=== PATIENT | male | born 1955 | race Caucasian/White ===

== ENCOUNTER 2021-06-16 18:59 | Emergency (ER) | payer OTHER, SELFPAY ==
--- NOTE | ~2021-06-16 | CT_ITS ---
EXAMINATION: CT abdomen pelvis w con EXAM DATE: 06/16/2021 22:48 INDICATION: Abdominal pain . Vomiting. Syncope. TECHNIQUE: Spiral CT of the abdomen and pelvis was performed following intravenous injection of 100 m L Omnipaque 350. Axial, coronal and sagittal images of the abdomen and pelvis were reviewed. The do se-length product (DLP) for this examination was 373.82 mGy-cm. The exposure was tailored according to patient size (auto mA exposure control), and iterative reconstruction (ASIR) was used as additiona l dose reduction technique. There is no prior study for comparison. FINDINGS: The liver, spleen, adrenal glands and pancreas are unremarkable. Gallbladder is unremarkab le. No biliary obstruction. Portal and splenic veins are patent. Kidneys enhance symmetrically. T here is no hydronephrosis. There is moderate prostatomegaly, prostate measuring 5 cm transverse dim ension, and bulging into the bladder. The bladder is unremarkable. There is no retroperitoneal or p elvic lymphadenopathy. Bilateral common iliac artery ectasia, left iliac artery measuring 2 cm and the right measuring 1.8 cm. The appendix is normal. The stomach and small bowel are unremarkable. There is,, small bowel and co lonic fluid, correlate for diarrhea/gastroenteritis. No free intraperitoneal gas. The heart is no rmal in size. The ascending measures 5.0 cm There are no pericardial or pleural effusions. The lung bases are unremarkable. There are no osteoblastic or osteolytic lesions identified. IMPRESSION: 1. Fluid throughout bowel, consider gastroenteritis. 2. Mildly aneurysmal ascending aorta at 5.0 cm. 3. Bilateral common iliac ectasia. 4. Prostatomegaly. Reviewed, dictated and finalized at location G.
[2021-06-16 19:03] VITALS: BP 137/69; PULSE 93; RESP 18; TEMP 36.4; O2SAT 99
--- NOTE | 2021-06-16 19:08 | ECG_ITS ---
Measurements Intervals [place] Rate: 92 P: 67 OK: 165 QRS: -21 QRSD: 85 T: 58 QT: 331 QTc: 410 Interpretive Statements SINUS RHYTHM LEFT ATRIAL ENLARGEMENT [-0.15mV P WAVE IN V1/V2] BORDERLINE LEFT AXIS DEVIATION [QRS AXIS < -20] NONSPECIFIC ST & T-WAVE ABNORMALITY ABNORMAL ECG NO PREVIOUS ECG AVAILABLE FOR COMPARISON Electronically Signed On 06-17-2021 11:15:08 CDT by Harlan Martinez M.D.
[2021-06-16 20:10] LABS: Basophils Absolute Auto 0.1 K/mm3 (0.0-0.1); Basophils Percent Auto 0.3 % (0.2-1.2); Eosinophils Absolute Auto 0.1 K/mm3 (0-0.3); Eosinophils Percent Auto 0.6 % (0-4.4); Hematocrit 51.3 % (42.0-52.0); Hemoglobin 17.3 g/dL (14.0-18.0); Immature Granulocyte Absolute 0.07 K/mm3 (0.00-0.031); Immature Granulocyte Percent A 0.4 % (0-0.5); Lymphocytes Absolute Auto 0.51 K/mm3 (0.9-3.2); Lymphocytes Percent Auto 2.7 % (18.3-44.2); Mean Corpuscular HGB Conc 33.7 g/dl (32-36); Mean Corpuscular Hemoglobin 31.3 pg (26-34); Mean Corpuscular Volume 92.9 fl (80-100); Monocytes Absolute Auto 1.4 K/mm3 (0.1-0.6); Monocytes Percent Auto 7.3 % (2.6-8.5); Neutrophils Absolute Auto 16.5 K/mm3 (1.3-6.7); Neutrophils Percent Auto 88.7 % (45.5-73.1); Platelet Count Result 238 k/mm3 (150-375); Red Blood Count 5.52 M/mm3 (4.6-6.20); Red Cell Distribution Width 12.5 % (11.5-14.5); White Blood Count 18.6 K/mm3 (4.5-10.0)
[2021-06-16] MEDS: ONDANSETRON INJ 4 MG/2 ML VIAL 8 MG IV PUSH (20:11)
[2021-06-16] MEDS: SODIUM CHLORIDE 0.9% IV 1,000 ML 999 ML IV CONT ×2 (20:11→20:46)
[2021-06-16] MEDS: LORazepam INJ (*CRX) 2 MG/ML VIAL 1 MG IV PUSH (20:12)
[2021-06-16 20:20] LABS: Alanine Aminotransferase 16 U/L (4-50); Albumin Level 4.8 g/dL (3.5-5.1); Alkaline Phosphatase 66 U/L (38-126); Anion Gap 12 mmol/L (8-16); Aspartate Amino Transferase 30 U/L (17-59); Bilirubin,Total 3.4 mg/dL (0.2-1.3); Blood Urea Nitrogen 20 mg/dL (9-20); Calcium 9.2 mg/dL (8.4-10.2); Carbon Dioxide 26 mmol/L (22-30); Chloride 103 mmol/L (98-107); Estimated CRCL calculation 63 ml/min; Estimated Glomerular Filt Rate > 60; Glucose 155 mg/dL (65-110); Potassium 3.8 mmol/L (3.4-5.0); Sodium 141 mmol/L (137-145)
[2021-06-16 20:41] VITALS: BP 147/72; PULSE 91; RESP 16; O2SAT 96
--- NOTE | 2021-06-16 22:13 | ED.DIZZY ---
HPI - Dizziness General Chief Complaint: Syncope Stated Complaint: syncope, refused ems on scene Time Seen by Provider: 06/16/21 19:51 Source: patient, EMS and RN notes reviewed Mode of arrival: EMS Limitations: no limitations History of Present Illness HPI Narrative: Patient is 65 years old white male went to the bathroom to have a bowel movement suddenly have massive diarrhea like an open hose, with some straining, developed lightheadedness, went to the bathroom, patient was slumped over, sitting on the toilet unresponsive, on arrival to the ED patient had violent vomiting x1 and at least 3 large watery stool over 1 hour. Currently patient feeling okay. Patient reports grandkids had similar symptoms over the last few days. Patient denies any headache, focal deficit, chest pain, shortness of breath, back pain, abdominal pain. Just feeling no energy. at the bedside, denying any symptoms. Related Data Allergies Allergy/AdvReac Type Severity Reaction Status Date / Time No Known Allergies Allergy Verified 06/16/21 19:45 Review of Systems Review of Systems: CONSTITUTIONAL: Denies fever, chills, or sweats. EYES: Denies visual changes, redness, or discharge. ENT: Denies rhinorrhea, congestion, sore throat, or otalgia. CARDIOVASCULAR: Denies chest pain, palpitations, or edema. RESPIRATORY: Denies cough or dyspnea. GASTROINTESTINAL: Denies abdominal pain, nausea, vomiting, or diarrhea. GENITOURINARY: Denies dysuria or hematuria. SKIN: Denies rash or itching. MUSCULOSKELETAL: Denies back pain, joint pain, or myalgia. NEUROLOGIC: Denies headache, numbness, or weakness. PSYCHIATRIC: Denies anxiety or depression. [facility] Past Medical History Medical History HLD (hyperlipidemia) Surgical History Surgical History History of surgical removal of ganglion cyst left wrist Social History Social History Smoking status: Never smoker Second hand tobacco smoke exposure: No Alcohol intake: current Drinks per week: 1 Substance use: never Substance use type: does not use Gender identity (if verbalized by the patient): Male Sexual Orientation (if Verbalized by the Patient): Straight or Heterosexual Exam Narrative: General appearance: Well-developed, well-nourished, patient have violent vomiting and dry heave on arrival to the emergency room Skin: Normal color Head: Normocephalic, nontraumatic Eyes: Clear conjunctiva ENT: Oropharynx normal, ears normal, nose normal Neck: Supple, nontender Chest and respiratory: Airway patent, no respiratory distress, no accessory muscle use Heart: Regular rate/rhythm Abdomen: Soft, nontender, no organomegaly, quiet bowel sounds Vascular: Normal peripheral pulses, normal capillary refill. Musculoskeletal: Normal range of motion, nontender back Neurologic: Alert and oriented ?3, [employer] is normal as tested, no gross motor deficit Course Course Emergency Course: Stable, improving. Patient unresponsiveness while sitting on the toilet high likely secondary to vasovagal and sudden loss of large amount of fluid through the diarrhea. Work-up showed leukocytosis which high likely reactive, Patient received 2 L of fluid, 8 mg of Zofran and 1 mg of Ativan to control his violent vomiting and dry heaves. Currently patient feeling much better and ready to go home. Vital Signs Vital signs: Vital Signs Temperature 36.4 C 06/16/21 19:03 Pulse Rate 93 06/16/21 19:03 Respiratory Rate 18 06/16/21 19:03 Blood Pressure 137/69 06/16/21 19:03 Pulse Oximetry 99
[2021-06-16 23:09] LABS: Add Urine Microscopic? YES; Appearance Urine Clear (Clear); Bilirubin Urine Negative (Negative); Blood Urine 1+ (Negative); Color Urine Yellow (Yellow); Glucose Urine UA Negative (Negative); Ketones Urine 1+ mg/dL (Negative); Leukocyte Esterase Ur Negative LEU/UL (Negative); Mucus Urine Rare /lpf; Nitrate Urine Negative (Negative); Protein Urine Negative (Negative); RBC Urine 0-2 /hpf (0-2); Urobilinogen Urine Negative mg/dL (<2.0); WBC Urine 0-3 /hpf
[2021-06-16 23:10] LABS: Specific Grav Ur 1.036 (1.001-1.035)
[2021-06-16 23:25] VITALS: BP 133/71; PULSE 97; RESP 18; O2SAT 94
== END 2021-06-16 23:26 | disposition home or self-care (01) ==
PROVIDERS: Emergency Provider Emergency Medicine; PCP Family Medicine
DX: K52.9 Noninfective gastroenteritis and colitis, unspecified (principal); I71.2 Thoracic aortic aneurysm, without rupture; E78.5 Hyperlipidemia, unspecified; N40.0 Benign prostatic hyperplasia without lower urinary tract symptoms; R94.31 Abnormal electrocardiogram [ECG] [EKG]
CPT/HCPCS: 36415; 74177; 80053; 81001; 85025; 93005; 96361; 96374; 96375; 99284; J2060; J2405; J7030; Q9967

== ENCOUNTER 2021-09-15 00:56 | Day surgery (SDC) | payer OTHER, SELFPAY ==
[2021-09-15] VITALS (8 sets, daily range): BP systolic 132–151; BP diastolic 83–92; PULSE 68–80; RESP 10–16; TEMP 36.1; O2SAT 97–100; BMI 21.4
--- NOTE | 2021-09-15 | ECHO_ITS ---
Patient Info Name: Jarret Byrd Age: 65 years : 1955 Gender: Male Ht: 74 in Wt: 170 lbs BSA: 2.00 m2 HR: 76 bpm BP: 121 / 91 mmHg Heart Rhythm: Sinus Rhythm Technical Quality: Good Exam Date: 09/15/2021 8:33 AM Exam Location: [facility] Patient Status: Outpatient Admit Date: 09/15/2021 Staff Ordering Physician: Vinny Wing MD Transaction Advisory Services Manager: Nay Portillo RDCS Attending Provider: Vinny Wing MD Referring Physician: Maciej GODINEZ; Exam Type: CA echo transesophageal Study Info Indications - Mitral regurgitation Complete two-dimensional, color flow and Doppler transesophageal study is performed. Summary 1. Left ventricular chamber dimension is mildly enlarged. 2. Global systolic function is preserved ejection fraction 55-60%. 3. Left atrial chamber dimension is moderately enlarged. 4. The mitral valve has thickened leaflets and posterior prolapse. 5. There is moderate to severe mitral valve regurgitation. 6. There appears to be posterior leaflet prolapse but also bileaflet prolapse with moderate to severe. Left Ventricle Left ventricular chamber dimension is mildly enlarged. Global systolic function is preserved ejection fraction 55-60%. Right Ventricle Right ventricular chamber dimension is normal. Left Atria Left atrial chamber dimension is moderately enlarged. Right Atria Right atrial chamber dimension is normal. Aortic Valve The aortic valve is normal. Pulmonic Valve The pulmonic valve is normal. Mitral Valve The mitral valve has thickened leaflets and posterior prolapse. There is moderate to severe mitral valve regurgitation. There appears to be posterior leaflet prolapse but also bileaflet prolapse with moderate to severe. Tricuspid Valve The tricuspid valve leaflets are normal. Pericardium/Pleural The pericardium appears normal. Inferior Vena Cava Not well visualized inferior vena cava with Empty collapse upon inspiration consistent with Empty right atrial pressure, Empty. Aorta The aortic root size at the sinus of Valsalva is normal. Report Signatures
--- NOTE | 2021-09-15 08:24 | WPDMODSED ---
Moderate Sedation Note-Pt Data Patient Data Diagnosis: Posterior mitral valve prolapse with significant MR Present Complaint: No complaints Procedure to be performed/Plan: Transesophageal echocardiogram Allergies Allergy/AdvReac Type Severity Reaction Status Date / Time No Known Allergies Allergy Verified 09/15/21 07:35 Home Medications Medication Instructions Recorded Confirmed Type No Home Medications 06/30/21 09/12/21 History Sedation/Anesthesia: No previous sedation/anesthesia problems (including family history). PMFSH Past Medical History Medical History HLD (hyperlipidemia) Surgical History Surgical History History of surgical removal of ganglion cyst left wrist Social History Social History Smoking status: Never smoker Second hand tobacco smoke exposure: No Alcohol intake: current Drinks per week: 1 Substance use: never Substance use type: does not use Living arrangements: with family Gender identity (if verbalized by the patient): Male Sexual Orientation (if Verbalized by the Patient): Straight or Heterosexual Spiritual care concerns: No Mod Sed Physical Exam Physical Exam Pre Procedural Exam: Normal: Appearance, Neck, Throat, Airway, Lungs, Heart Size, Heart Rhythm, Neuro Exam and Extremities and Variation: Heart Rate (Mildly tachycardic) Hours since solid foods: 12 Hours since liquid intake: 12 Mallampati Classification: class II Internal Medicine - PN: Obj Da Vital Signs Vital Signs: Vital Signs - 24 hr 09/15/21 07:43 Temperature 36.1 C L Pulse Rate 79 Respiratory Rate 14 Blood Pressure 135/91 H Pulse Oximetry 97 Oxygen Delivery Room Air ASA Classification/Sedation ASA Classification/Sedation ASA Class: II Emergent: No Risks: Risks, benefits and alternatives explained and patient/family accepted plan for sedation. Patient re-evaluated immediately prior to sedation.
--- NOTE | 2021-09-15 08:51 | P.PCNCC_ITS ---
Cardiac Cath Procedure Note Date of procedure:: 09/15/21 Performing physician:: Vinny Wing MD Indication:: Mitral valve regurgitation Brief clinical history:: This is a 65-year-old gentleman who is currently asymptomatic but was found to have mitral valve prolapse with significant MR and is being evaluated as a potential candidate for mitral valve repair Procedure Procedure performed:: Transesophageal echocardiogram Sedation/Medication given:: Fentanyl 100 mg Versed 4 mg Case start time 8:33 a.m. Case end time 8:46 a.m. Sedation provided by Ralph Ramirez RN, trained observer Estimated blood loss:: No blood loss Procedure note:: Patient was brought to the cardiac catheterization lab holding area in the postabsorptive state IV access was placed in the left upper extremity. He had or pharyngeal benzocaine sprayed and a bite block placed in position. He was then sedated using aliquots of Versed and fentanyl. When adequate sedation was achieved transesophageal echocardiogram was performed easily and without complication. Multiple views were obtained and careful a color Doppler interrogation of the mitral valve was obtained. The descending thoracic aorta and aortic root as well as the aortic arch were examined. The probe was then withdrawn the patient will be recovered from sedation procedure was well tolerated and uncomplicated. Findings:: The left atrium is pizl-zl-zjsvyaooyf enlarged the mitral valve leaflets are thickened particularly the posterior leaflet. Both leaflets appear to prolapse a. The most significant prolapse appears to be in the P2 segment of the posterior leaflet where significant failure to coapted with the anterior leaflet is noted. There is an eccentric jet of mitral regurgitation identified that is moderate to severe by color Doppler exam. The patient does not have any flail chordal elements identified. The left ventricle is slightly dilated there is normal systolic contractility in all segments the global ejection fraction appears to be about 60%. The aortic valve is a normal trileaflet structure which is thin and pliable. The ascending aorta arch and descending thoracic aorta appear to be unremarkable. The tricuspid and pulmonic valves look normal. There is no evidence of pericardial fluid. The interatrial septum is intact. The tricuspid and pulmonic valves look normal. Conclusion:: 1. Bileaflet mitral valve prolapse more significant in the posterior leaflet with at least moderate to severe MR noted on color Doppler imaging. 2. Mild left ventricular systolic dysfunction as judged by mildly increased LV diameter Vinny Wing MD [facility]
--- NOTE | 2021-09-15 09:10 | SUR.PHASEII ---
TAKING WATER PO WITHOUT DIFFICULTY. SWALLOWING WELL.
== END 2021-09-15 10:30 | disposition home or self-care (01) ==
PROVIDERS: PCP Family Medicine; Visit Provider Specialist
PROC: (CPT 93312; principal; 2021-09-15 08:30)
DX: I34.0 Nonrheumatic mitral (valve) insufficiency (principal); I34.1 Nonrheumatic mitral (valve) prolapse
CPT/HCPCS: 93312; 93320; 93325; J2250; J3010; J7040

== ENCOUNTER 2021-10-06 00:53 | Day surgery (SDC) | payer OTHER, SELFPAY ==
[2021-10-06] VITALS (10 sets, daily range): BP systolic 104–129; BP diastolic 67–92; PULSE 61–76; RESP 12–18; TEMP 36.2; O2SAT 93–98; BMI 21.0
[2021-10-06 07:26] LABS: Basophils Percent Auto 0.5 % (0.2-1.2); Eosinophils Absolute Auto 0.2 K/mm3 (0-0.3); Hematocrit 47.6 % (42.0-52.0); Hemoglobin 16.1 g/dL (14.0-18.0); Immature Granulocyte Absolute 0.02 K/mm3 (0.00-0.031); Immature Granulocyte Percent A 0.3 % (0-0.5); Lymphocytes Absolute Auto 2.29 K/mm3 (0.9-3.2); Lymphocytes Percent Auto 30.2 % (18.3-44.2); Mean Corpuscular HGB Conc 33.8 g/dl (32-36); Mean Corpuscular Hemoglobin 30.3 pg (26-34); Mean Corpuscular Volume 89.6 fl (80-100); Monocytes Absolute Auto 0.7 K/mm3 (0.1-0.6); Monocytes Percent Auto 9.4 % (2.6-8.5); Neutrophils Absolute Auto 4.3 K/mm3 (1.3-6.7); Neutrophils Percent Auto 56.6 % (45.5-73.1); Platelet Count Result 199 k/mm3 (150-375); Red Blood Count 5.31 M/mm3 (4.6-6.20); Red Cell Distribution Width 12.6 % (11.5-14.5); White Blood Count 7.6 K/mm3 (4.5-10.0)
[2021-10-06 07:37] LABS: Anion Gap 6 mmol/L (8-16); Blood Urea Nitrogen 16 mg/dL (9-20); Calcium 8.8 mg/dL (8.4-10.2); Carbon Dioxide 27 mmol/L (22-30); Chloride 106 mmol/L (98-107); Estimated CRCL calculation 76 ml/min; Estimated Glomerular Filt Rate > 60; Glucose 96 mg/dL (65-110); Potassium 4.6 mmol/L (3.4-5.0); Sodium 139 mmol/L (137-145)
[2021-10-06] MEDS: SODIUM CHLORIDE 0.9% IV 500 ML 100 ML IV CONT (07:38)
--- NOTE | 2021-10-06 08:32 | WPDMODSED ---
Moderate Sedation Note-Pt Data Patient Data Diagnosis: Mitral valve prolapse with mitral regurgitation Present Complaint: no complaints this morning Procedure to be performed/Plan: right and left heart catheterization Allergies Allergy/AdvReac Type Severity Reaction Status Date / Time No Known Allergies Allergy Verified 09/15/21 07:35 Home Medications Medication Instructions Recorded Confirmed Type No Home Medications 06/30/21 10/03/21 History Current Medications: Active Medications Sodium Chloride (Normal Saline Iv) 500 mls @ 100 mls/hr IV CONT .[facility] Last Admin: 10/06/21 07:38 Dose: 100 mls/hr Sedation/Anesthesia: No previous sedation/anesthesia problems (including family history). PMFSH Past Medical History Medical History HLD (hyperlipidemia) Surgical History Surgical History History of surgical removal of ganglion cyst left wrist Social History Social History Smoking status: Never smoker Second hand tobacco smoke exposure: No Alcohol intake: current Drinks per week: 1 Substance use: never Substance use type: does not use Living arrangements: with family Gender identity (if verbalized by the patient): Male Sexual Orientation (if Verbalized by the Patient): Straight or Heterosexual Spiritual care concerns: No Mod Sed Physical Exam Physical Exam Pre Procedural Exam: Normal: Appearance, Neck, Throat, Airway, Lungs, Heart Size, Heart Rate, Heart Rhythm, Neuro Exam and Extremities Hours since solid foods: 12 Hours since liquid intake: 12 Mallampati Classification: class II Internal Medicine - PN: Obj Da Vital Signs Vital Signs: Vital Signs - 24 hr 10/06/21 07:18 Temperature 36.2 C L Pulse Rate 68 Respiratory Rate 16 Blood Pressure 129/82 Pulse Oximetry 98 Oxygen Delivery Room Air Meds/Results Medications: Active Medications Generic Name Dose Route Start Last Admin Trade Name Freq PRN Reason Stop Dose Admin Sodium Chloride 500 mls @ 100 mls/hr 10/06/21 07:20 10/06/21 07:38 Normal Saline Iv IV CONT 100 mls/hr .Q5H DWAYNE Administration Labs CBC & Chem 7: 10/06/21 07:22 10/06/21 07:22 Labs: Laboratory Results - last 24 hr 10/06/21 10/06/21 07:22 07:22 WBC 7.6 RBC 5.31 Hgb 16.1 Hct 47.6 MCV 89.6 MCH 30.3 MCHC 33.8 RDW 12.6 Plt Count 199 MPV 10.0 Immature Gran % (Auto) 0.3 Neut % (Auto) 56.6 Lymph % (Auto) 30.2 [place] % (Auto) 9.4 H Eos % (Auto) 3.0 Baso % (Auto) 0.5 Lymph # (Auto) 2.29 [place] # (Auto) 0.7 H Eos # (Auto) 0.2 Baso # (Auto) 0.0 Abs Immat Gran (auto) 0.02 Absolute Neuts (auto) 4.3 Absolute Nucleated RBC 0.0 Nucleated RBC % 0.0 Sodium 139 Potassium 4.6 Chloride 106 Carbon Dioxide 27 Anion Gap 6 L BUN 16 Creatinine 0.90 Estim Creat Clear Calc 76 Estimated GFR > 60 Glucose 96 Calcium 8.8 ASA Classification/Sedation ASA Classification/Sedation ASA Class: III Emergent: No Risks: Risks, benefits and alternatives explained and patient/family accepted plan for sedation. Patient re-evaluated immediately prior to sedation.
--- NOTE | 2021-10-06 09:29 | P.PCNCC_ITS ---
Cardiac Cath Procedure Note Date of procedure:: 10/06/21 Performing physician:: Vinny Wing MD Indication:: mitral regurgitation Brief clinical history:: this is a 65-year-old patient recently referred because of a cardiac murmur. He has been found to have evidence of posterior leaflet mitral valve prolapse and significant MR. Right left heart catheterization has been scheduled for today in anticipation of a surgical consultation. Procedure Procedure performed:: Right and left heart catheterization Sedation/Medication given:: fentanyl 50 mg Versed 2 mg case start time 8:45 a.m. case end time 9:27 a.m. sedation provided by Ralph Costa RN, trained observer Access site:: right femoral artery, right femoral vein Estimated blood loss:: 25 cc Procedure note:: patient was brought to the cardiac catheterization lab in the postabsorptive state where the right femoral triangle was prepared and draped in the usual fashion. 1% lidocaine was infiltrated locally. Using the modified Seldinger technique the right femoral vein was punctured and a 7 [place] sheath was placed and then the right femoral artery was punctured and 5 Kazakh sheath was placed. After this right heart catheterization was carried out. I used a balloon tip [place]oi catheter to measure right-sided hemodynamics, thermodilution cardiac outputs and Sample AV O2 difference. the [place] catheter was then removed. I used a 5 [place] angled pigtail catheter to measure left-sided hemodynamics and inject LV g in the are AO projection. After this the left coronary artery was injected using a standard 5 [place] JL5 catheter and the right coronary artery was injected using a 5 [place] JR4 catheter. The cineangiograms were then reviewed and the case was terminated. An angiogram was done of the femoral artery through the sheath after which a 6 [place] Angio-Seal device was deployed at the puncture site with a good hemostatic result. Procedure was tolerated well there were no apparent complications and he left the medical laboratory technologist with no evidence of a groin hematoma. Findings:: Hemodynamics: Mean right atrial pressure is 5 mmHg, right ventricle 27/3 end-diastolic 6, pulmonary artery 24/12, pulmonary capillary wedge pressure 13, left ventricle 135/0 end-diastolic 10, central aorta 130 over 74, no gradient across the aortic valve. Thermodilution cardiac output is 4.9 liters/minute giving an index of 2.5. Kathryn cardiac output 5.7 liters/minute giving an index of 2.9. Left ventricle: The LV is normal in size all segments contract adequately the global ejection fraction is 55-60%. Prolapse of the posterior mitral leaflet with moderate MR is noted. The left main coronary artery is nicely patent the left anterior descending is a moderate caliber artery extending down to around the apex. The LAD and its branches are angiographically unremarkable circumflex is a moderate caliber artery giving rise to the marginal branches and a posterior branch circumflex system is smooth and angiographically normal. Right coronary artery is large in caliber and dominant to the posterior circulation the right coronary artery is smooth and angiographically normal. Conclusion:: 1. Right coronary dominant circulation with no evidence of coronary disease 2. preserved left ventricular systolic function, 3. normal cardiac output and normal pulmonary artery pressures 4. posterior leaflet prolapse with mitral regurgitation Vinny Wing MD [facility]
--- NOTE | 2021-10-06 13:51 | SUR.PHASEII ---
D: Patient bedrest ended and patient ambulated to the bathroom. Oozing from right groin arterial site. Small amount of bleeding. A: Patient instructed to returned to bed immediately, pressure applied to right groin for 10mins. Stat seal applied and bedrest continued for an additional 2 hours. made aware. R: Bleeding to right groin controlled. Patient given instruction to keep extremity straight and that his bedrest would be another 2 hous.
== END 2021-10-06 16:16 | disposition home or self-care (01) ==
PROVIDERS: PCP Family Medicine; Visit Provider Specialist
PROC: 4A023N8 Measurement of Cardiac Sampling and Pressure, Bilateral, Percutaneous Approach (ICD-10-PCS; CPT 93453; principal; 2021-10-06 08:30)
DX: I34.0 Nonrheumatic mitral (valve) insufficiency (principal); I34.1 Nonrheumatic mitral (valve) prolapse
CPT/HCPCS: 36415; 80048; 85025; 93460; C1760; C1887; C1894; G0269; J1644; J2250; J3010; J7040

== ENCOUNTER 2022-11-12 09:27 | Emergency (ER) | payer MEDICARE, SELFPAY ==
--- NOTE | ~2022-11-12 | XR_ITS ---
EXAMINATION: [id number] DATE: 11/12/2022 09:55 INDICATION: Left mid to lower lateral rib pain. Fall. TECHNIQUE: A frontal view of the chest on 2 radiographs and 2 views on 3 radiographs of the left ribs were obtained. COMPARISON: CT abdomen and pelvis 06/16/2021 FINDINGS: There is mild atelectasis versus scarring in right mid and lower lung zones. No pleural eff usion or pneumothorax. The heart size is normal. There are changes of heart valve replacement. There is a closure device at left atrial appendage. There are fractures of left sixth and seventh ribs. IMPRESSION: 1. Fractures of left sixth and seventh ribs. Reviewed, dictated and finalized at location A.
--- NOTE | 2022-11-12 09:39 | ED.GENADULT ---
HPI - General Adult General Chief complaint: Extremity Injury, Upper Stated complaint: L RIBS/ELBOW INJURY Time Seen by Provider: 11/12/22 09:39 Source: patient Mode of arrival: ambulatory Limitations: no limitations History of Present Illness HPI narrative: 66 yo M presents with c/o pain to L ribs. pt was rubbing yesterday and tried to step over a branch and it became tangled up in his feet causing him to fall onto his L side. did not hit head, denies LOC. Was able to get up on his own. STates he finsihed his run and later cut the grass. Noticed a lot of soreness to L ribs in the evending. Usually sleeps on L side and was unable to. states not so much tender on palpation but with movement a lot of pain . Denies SOB. All systems reviewed and negative except as noted above. Related Data Home Medications Medication Instructions Recorded Confirmed No Home Medications 07/06/22 11/12/22 Allergies Allergy/AdvReac Type Severity Reaction Status Date / Time No Known Allergies Allergy Verified 11/12/22 09:37 Review of Systems Review of Systems: CONSTITUTIONAL: Denies fever, chills, or sweats. EYES: Denies visual changes, redness, or discharge. ENT: Denies rhinorrhea, congestion, sore throat, or otalgia. CARDIOVASCULAR: Denies chest pain, palpitations, or edema. RESPIRATORY: Denies cough or dyspnea. GASTROINTESTINAL: Denies abdominal pain, nausea, vomiting, or diarrhea. GENITOURINARY: Denies dysuria or hematuria. SKIN: Denies rash or itching. MUSCULOSKELETAL: Denies back pain, joint pain, or myalgia. reports pain to L ribs, lateral aspect NEUROLOGIC: Denies headache, numbness, or weakness. PSYCHIATRIC: Denies anxiety or depression. All other systems reviewed are negative, except as documented in HPI. [facility] Past Medical History Medical History HLD (hyperlipidemia) Surgical History Surgical History History of maze procedure History of mitral valve repair History of surgical removal of ganglion cyst left wrist History of thoracotomy S/P left atrial appendage ligation Social History Social History (Reviewed 07/06/22 @ 08:34 by Anum Philip Smoking status: Never smoker Second hand tobacco smoke exposure: No Alcohol intake: current Drinks per week: 1 Substance use: never Substance use type: does not use Living arrangements: with family Occupation/Education: occupation Gender identity (if verbalized by the patient): Male Sexual Orientation (if Verbalized by the Patient): Straight or Heterosexual Spiritual care concerns: No Comments At time of signature, agree with nursing past medical, surgical, social and family history. There is no relevant family history pertinent to the presenting complaint. Exam Narrative: GENERAL: This is a well-nourished, well-developed patient, in no apparent distress. HEAD: normocephalic, atraumatic. EYES: PERRL. Sclera clear/white. Vision is grossly intact. EARS: External ears normal NOSE: External nose normal NECK: Neck supple, non-tender without lymphadenopathy, masses or thyromegaly. CARDIOVASCULAR: Regular rate and rhythm without murmurs, gallops, or rubs. RESPIRATORY: Clear to auscultation. Breath sounds equal bilaterally. No wheezes, rales, or rhonchi. SKIN: warm, Dry, intact with no suspicious lesions or rash, good texture and turgor. NEURO: awake, alert, and oriented to person, place and time. There were no obvious focal neurologic abnormalities. EXTREMITIES: No joint tenderness, effusion, or edema noted. MUSCULOSKELETAL: tenderness on palpation of L lower ribs, 7-9th, laterally Course Course Level of Care: Express Care Visit Vital Signs Vital signs: Vital Signs Temperature 36.2 C L 11/12/22 09:42 Pulse Rate 84 11/12/22 09:42 Respiratory Rate 16 11/12/22 09:42 Blood Pressure 140/90 11/12/22 09:42 Pulse Ox
[2022-11-12 09:42] VITALS: BP 140/90; PULSE 84; RESP 16; TEMP 36.2; O2SAT 100
== END 2022-11-12 10:24 | disposition home or self-care (01) ==
PROVIDERS: Emergency Provider Nurse Practitioner Family; PCP Family Medicine
DX: S22.42XA Multiple fractures of ribs, left side, initial encounter for closed fracture (principal); W18.09XA Striking against other object with subsequent fall, initial encounter; E78.5 Hyperlipidemia, unspecified
CPT/HCPCS: 71101; 99213; G0463

== ENCOUNTER → 2023-01-05 12:48 | Outpatient (CLI) | payer MEDICARE, SELFPAY ==
--- NOTE | ~2023-01-05 | US_ITS ---
US renal BI 01/05/2023 13:05 Procedure: Realtime transabdominal ultrasound of the kidneys and bladder. Indication: Gross hematuria Comparison: No prior studies for comparison. Findings: Renal echotexture is normal bilaterally without hydronephrosis, contour deforming mass or r enal calculus. The right kidney measures 11.2 cm and left kidney measures 11 cm. Prostate gland is en larged. Bladder within normal limits. Impression: 1: Unremarkable renal ultrasound. No stones, masses or hydronephrosis. Reviewed, dictated and finalized at location L. Impression: 1: Unremarkable renal ultrasound. No stones, masses or hydronephrosis.
== END ==
PROVIDERS: PCP Physician Assistant; Visit Provider Physician Assistant
DX: R31.0 Gross hematuria (principal)
CPT/HCPCS: 76775

== ENCOUNTER 2023-09-07 09:44 | Outpatient (CLI) | payer MEDICARE, SELFPAY ==
--- NOTE | ~2023-09-07 | CT_ITS ---
CT of the Abdomen and Pelvis: Indication: Hematuria Technique: 2.5 mm axial scans were obtained through the abdomen and pelvis prior to and following in travenous administration of 130 cc of Omnipaque 350. Dose reduction technique was used on this scan b y utilizing automated exposure control and iterative reconstruction technique. The dose-length produc t (DLP) was 1102.94 mGy-cm. COMPARISON: 06/16/2021 Findings: Scans through the lung bases demonstrate probable focal scarring or atelectasis right lung base. The liver, spleen, pancreas, gallbladder, adrenals and kidneys are within normal limits. There are at herosclerotic calcifications of the aorta. No lymphadenopathy. No bowel obstruction or bowel wall thickening. There is no evidence to suggest acute appendicitis. Images through the pelvis were performed. Urinary bladder unremarkable. Markedly enlarged prostate gl and present, which somewhat indents the inferior margin of the bladder. No ascites. Impression: Markedly enlarged prostate gland, somewhat similar to prior exam. No other system abnormality seen . Reviewed, dictated and finalized at location M. Impression: Markedly enlarged prostate gland, somewhat similar to prior exam. No other s ystem abnormality seen.
[2023-09-07 10:03] LABS: Estimated Glomerular Filt Rate > 60
== END 2023-09-07 09:45 ==
LOC: MICIMG 09:46
PROVIDERS: PCP Family Medicine; Visit Provider Urology
DX: R31.0 Gross hematuria (principal); N40.0 Benign prostatic hyperplasia without lower urinary tract symptoms
CPT/HCPCS: 74178; Q9967

== ENCOUNTER 2025-01-08 08:26 | Emergency (ER) | payer MEDICARE, SELFPAY ==
[2025-01-08 08:45] VITALS: BP 159/106; PULSE 87; RESP 16; TEMP 36; O2SAT 99
[2025-01-08 09:27] LABS: EDCOVIDSCREEN Negative (Negative); EDINFLUASCREEN Negative (Negative); EDINFLUBSCREEN Negative (Negative)
--- NOTE | 2025-01-08 09:29 | ED_ITS ---
HPI - URI/Sore Throat General Chief Complaint: Upper Respiratory Infection Stated Complaint: Congestion/Cough Time Seen by Provider: 01/08/25 09:00 Source: patient and RN notes reviewed Mode of arrival: ambulatory Limitations: no limitations History of Present Illness HPI Narrative: 69-year-old male presents Express Care complaining of upper respiratory symptoms for approximately 3 days. Patient reports cough, congestion, chest congestion. Patient denies any other upper respiratory symptoms, fevers, body aches, chills, nausea vomiting, chest pain, difficulty breathing, wheezing, or any other symptoms. Taking DayQuil help with symptoms. Patient denies any significant past medical history. Related Data Allergies Allergy/AdvReac Type Severity Reaction Status Date / Time No Known Allergies Allergy Verified 01/08/25 08:44 Review of Systems Review of Systems: CONSTITUTIONAL: Denies fever, chills, body aches, or sweats. EYES: Denies visual changes, redness, or discharge. ENT: Positive for congestion. Negative for rhinorrhea, sore throat, or otalgi a. CARDIOVASCULAR: Denies chest pain, palpitations, or edema. RESPIRATORY: Positive for cough. Negative for dyspnea. GASTROINTESTINAL: Denies abdominal pain, nausea, vomiting, or diarrhea. GENITOURINARY: Denies dysuria or hematuria. SKIN: Denies rash or itching. MUSCULOSKELETAL: Denies back pain, joint pain, or myalgia. NEUROLOGIC: Denies headache, numbness, or weakness. PSYCHIATRIC: Denies anxiety or depression. All other systems reviewed are negative, except as documented in HPI. COUNTS INCLUDE 234 BEDS AT THE [facility] Past Medical History Medical History BPH w urinary obs/LUTS Elevated PSA МАРИЯ (obstructive sleep apnea) HLD (hyperlipidemia) Surgical History Surgical History History of prostate surgery arterial embolization S/P left atrial appendage ligation History of thoracotomy History of mitral valve repair History of maze procedure History of surgical removal of ganglion cyst left wrist Social History Social History Smoking status: Never smoker Second hand tobacco smoke exposure: No Alcohol intake: current Drinks per week: 1 Substance use: never Substance use type: does not use Living arrangements: with family Occupation/Education: occupation Gender identity (if verbalized by the patient): Male Sexual Orientation (if Verbalized by the Patient): Straight or Heterosexual Spiritual care concerns: No Comments At the time of my signature, I reviewed and agree with the nursing past medical, surgical, social, and family history. There is no relevant family history pertinent to the patient complaint. Exam Narrative: GENERAL: This is a well-nourished, well-developed adult, in no apparent distress. They are non ill-appearing, nontoxic appearing. HEAD: normocephalic, atraumatic. EYES: Sclera clear/white. Vision is grossly intact. Conjunctiva normal bilaterally. Extraocular movements intact. EARS: External ears normal, auditory canals clear and without drainage, TMs without erythema or perforation. Hearing grossly intact. NOSE: External nose normal with no obvious nasal discharge, nasal turbinates erythematous, no rhinorrhea. THROAT: Mucous membranes moist, posterior pharynx without redness or swelling without exudate. Uvula is midline. Postnasal drip present. NECK: Neck supple, non-tender without lymphadenopathy, masses or thyromegaly. CARDIOVASCULAR: Regular rate and rhythm without murmurs, gallops, or rubs. RESPIRATORY: Clear to auscultation. Breath sounds equal bilaterally. No wheezes, rales, or rhonchi. SKIN: warm, Dry, intact with no suspicious lesions or rash, good texture and turgor. NEURO: awake, alert, and oriented to person, place and time. There were no obvious focal neurologic abnormalities. EXTREMITIES: No joint tenderness, effusion, or edema noted. BACK: Nontender without deformity. Course Course Emergency Course: Portions of this record may have been created with voice recognition software Level of Care: Express Care Visit Vital Signs Vital signs: Vital Signs Temperature 96.8 F L 01/08/25 08:45 Pulse Rate 87 01/08/25 08:45 Respiratory Rate 16 01/08/25 08:45 Blood Pressure 159/106 H 01/08/25 08:45 Pulse Oximetry 99 01/08/25 08:45 Oxygen Delivery Room Air 01/08/25 08:45 Temperature 96.8 F L 01/08/25 08:45 Pulse Rate 87 01/08/25 08:45 Respiratory Rate 16 01/08/25 08:45 Blood Pressure 159/106 H 01/08/25 08:45 Pulse Oximetry 99 10/13/25 08:45 Oxygen Delivery Room Air 01/08/25 08:45 MDM - URI/Sore Throat MDM Narrative Medical decision making narrative: Rapid COVID and flu were negative. Symptoms likely viral upper respiratory infection. Will prescribe benzonatate tablets as needed for cough. Discussed physical exam findings. Advised supportive measures and signs/symptoms to go to the ER. Pt is appropriate for outpt treatment and f/u. Differential Diagnosis Differential diagnosis: Likely upper respiratory infection, sinusitis, viral infection and influenza Lab Data Attestation: I reviewed the patient's lab results. Labs: Lab Results 01/08/25 Range/Units 09:26 POC Influenza A Ag Negative (Negative) POC Influenza B Ag Negative (Negative) POC SARS CoV-2 Ag Negative (Negative) Discharge Plan Discharge Clinical Impression: Upper respiratory infection Patient Disposition: Home Condition: Stable Instructions: Upper Respiratory Infection (ED) Additional Instructions: Viral illness may last between 7-10 days; antibiotics do not cure viral illness and are NOT recommended at this time. Zyrtec or Claritin as needed for congestion. Follow instructions on the bottle. You may use Afrin 2 sprays each nostril 2 twice a day for maximum of 3 days. If you use longer than 3 days it will cause rebound congestion. Take benzonatate tablets as needed for cough. Also, recommend symptomatic treatment includes: rest, fluids, and increase humidity of the air at home. Tylenol or ibuprofen as needed for pain or fevers. If you take DayQuil or NyQuil do not take additional Tylenol as it already contains Tylenol in it. You may take ibuprofen 600 mg to 800 mg every 6-8 hours. Do not exceed more than 800 mg of ibuprofen per dose. Do not exceed more than 3200 mg ibuprofen in a day. You may take up to 1000 mg Tylenol every 6-8 hours. Do not exceed 1000 mg per dose, do exceed more than 4000 mg of Tylenol in a day. Please schedule a follow-up visit with your personal physician for further evaluation and treatment within 5-7 days If you developed chest pain, difficulty breathing, nausea, vomiting, worsening symptoms, or any serious concerns please go to the ER immediately. Patient Language: Stateless Prescriptions: New benzonatate 100 mg capsule 100 mg PO TID PRN (Reason: cough) Qty: 20 0RF No Action amoxicillin 500 mg tablet 2,000 mg PO ONCE Qty: 4 0RF Rx Instructions: Take 4 tabs (2000 mg) once 30-60 min prior to dental procedure Follow-up/Referrals: Eric Tolentino MD [Primary Care Provider, [facility]] Time of Disposition: 09:28
== END 2025-01-08 09:30 | disposition home or self-care (01) ==
PROVIDERS: PCP Family Medicine
DX: J06.9 Acute upper respiratory infection, unspecified (principal); Z20.822 Contact with and (suspected) exposure to COVID-19; N40.1 Benign prostatic hyperplasia with lower urinary tract symptoms; E78.5 Hyperlipidemia, unspecified
CPT/HCPCS: 87426; 87804; 99213; G0463

== ENCOUNTER 2025-02-06 08:02 | Emergency (ER) | payer MEDICARE, SELFPAY ==
--- NOTE | 2025-02-06 08:09 | ED_ITS ---
HPI - URI/Sore Throat General Chief Complaint: Upper Respiratory Infection Stated Complaint: SORE ON THE BACK OF THROAT Time Seen by Provider: 02/06/25 08:23 Source: patient and RN notes reviewed Mode of arrival: ambulatory Limitations: no limitations History of Present Illness HPI Narrative: 69-year-old male presents with concern for sore in his throat. He reports several day history of painful swallowing and he saw a white spot on the back of his throat. He reports his sinuses feel heavy but otherwise he does not nasal congestion, rhinorrhea, cough. No fever body aches or chills. He has been using saltwater gargle elicited complaint: sore throat Related Data Allergies Allergy/AdvReac Type Severity Reaction Status Date / Time No Known Allergies Allergy Verified 02/06/25 08:13 Review of Systems Review of Systems: CONSTITUTIONAL: Denies malaise, chills, sweats, or fever. EYES: Denies visual changes, redness, or discharge. ENT: denies rhinorrhea, congestion, sinus pain, otalgia . Reports sore throat. CARDIOVASCULAR: Denies chest pain, palpitations, or edema. RESPIRATORY: denies cough. Denies dyspnea. GASTROINTESTINAL: Denies abdominal pain, nausea, vomiting, diarrhea SKIN: Denies rash or itching. MUSCULOSKELETAL: Denies myalgia. NEUROLOGIC: Denies headache. All systems reviewed & are unremarkable except as noted in HPI and below PMFSH Past Medical History Medical History BPH w urinary obs/LUTS Elevated PSA МАРИЯ (obstructive sleep apnea) HLD (hyperlipidemia) Surgical History Surgical History History of prostate surgery arterial embolization S/P left atrial appendage ligation History of thoracotomy History of mitral valve repair History of maze procedure History of surgical removal of ganglion cyst left wrist Social History Social History Second hand tobacco smoke exposure: No Alcohol intake: current Drinks per week: 1 Substance use: never Substance use type: does not use Living arrangements: with family Occupation/Education: occupation Gender identity (if verbalized by the patient): Male Sexual Orientation (if Verbalized by the Patient): Straight or Heterosexual Spiritual care concerns: No Comments At time of signature, agree with nursing past medical, surgical, social and family history. There is no relevant family history pertinent to the presenting complaint Exam Narrative: GENERAL: Well-appearing, well-nourished, and in no acute distress. HEAD: Normocephalic EYES: PERRLA, conjunctivae clear ENT: Nares clear. Mucous membranes moist. TM pearly watkins with sharp light reflex bilaterally; no tragal tenderness. Oropharynx not erythematous , canker sore noted to the right posterior oropharynx. Tonsils not enlarged and without exudate, no drooling, no hoarseness, no trismus, uvula midline. NECK: Supple. No lymphadenopathy CHEST: Clear to auscultation, breath sounds equal. No wheezing, rhonchi, rales, or stridor. No respiratory distress, speaks in full sentences. HEART: Regular rate and rhythm. No murmur heard. SKIN: Warm, dry, no rash. NEURO: Alert and oriented x3. PSYCH: Normal mood and affect Course Course Emergency Course: Patient is aware of diagnosis, understands and agrees to treatment plan. Anticipatory guidance given. Patient agrees to follow-up as directed and is aware of reasons to seek care at the emergency department. Portions of this record may have been created with voice recognition software Level of Care: Express Care Visit Vital Signs Vital signs: Reviewed. MDM - URI/Sore Throat MDM Narrative Medical decision making narrative: Differential diagnosis considered: Cruz virus, strep pharyngitis, allergic rhinitis, upper respiratory tract infection, sinusitis, rhinosinusitis, nasopharyngitis. viral pharyngitis, otitis media, otitis externa, pneumonia, bronchitis, viral cough syndrome, viral syndrome, and influenza. Exam findings show no acute concerns or changes; patient is non-toxic appearing and is in no distress. Patient is appropriate for outpatient treatment and follow-up. Lab Data Attestation: I reviewed the patient's lab results. Critical Care Time Critical Care Time Critical Care Time: No Discharge Plan Discharge Clinical Impression: Canker sore Patient Disposition: Home Condition: Stable Instructions: General Patient Instructions Additional Instructions: 1) Please follow-up with your primary care doctor as needed. 2) If you have any urgent concerns please go to the ER. 3) Please take medications as prescribed, use salt water gargles often, and continue taking your home medications as usual. you can also use things like zinc and vitamin-C to help support your immune system. Patient Language: Frisian Prescriptions: New Magic Mouthwash (Dr. Jean) 120 mL suspension 10 ml PO Q4H PRN (Reason: pain) Qty: 120 0RF Rx Instructions: diphenhydramine 12.5 mg/5 mL oral elixir 40 mL; Lidocaine Viscous 2 % mucosal solution 40 mL; Maalox 200 mg-200 mg-20 mg/5 mL oral suspension 40 mL; Per 120 mL Follow-up/Referrals: Eric Tolentino MD [Primary Care Provider, [facility]] Time of Disposition: 08:33
[2025-02-06 08:12] VITALS: BP 163/98; PULSE 92; RESP 16; TEMP 36.2; O2SAT 98
== END 2025-02-06 08:35 | disposition home or self-care (01) ==
PROVIDERS: Emergency Provider Nurse Practitioner; PCP Family Medicine
DX: K12.0 Recurrent oral aphthae (principal); N40.1 Benign prostatic hyperplasia with lower urinary tract symptoms; E78.5 Hyperlipidemia, unspecified
CPT/HCPCS: 99213; G0463